=== PATIENT | female | born 1950 | race Caucasian/White ===

== ENCOUNTER → 2023-08-16 10:52 | Outpatient (CLI) | payer MEDICARE, OTHER, SELFPAY ==
--- NOTE | 2023-08-16 | DI.RAD.S_ITS ---
PROCEDURE: XR ABDOMEN 3V INDICATIONS: Diarrhea, unspecified TECHNIQUE: One view chest and two views of the abdomen were acquired. COMPARISON: None. FINDINGS: Surgical changes and devices: None. Chest: Lungs are clear. Heart size is normal. No pleural effusions. No pneumoperitoneum. Abdomen: Bowel gas pattern is normal. Moderately increased quantity of solid stool. No suspicious calcifications. Visualized solid organ contours appear normal. Bones: No suspicious bony lesions. Healed left rib fractures. IMPRESSION: Moderate diffuse colonic obstipation. Dictated by: Marla Colbert M.D. on 08/16/2023 at 16:41 Approved by: Marla Colbert M.D. on 08/16/2023 at 16:43
== END ==
PROVIDERS: PCP Physician Assistant; Referring Provider Internal Medicine Gastroenterology; Visit Provider Internal Medicine Gastroenterology
DX: K59.00 Constipation, unspecified (principal); R19.7 Diarrhea, unspecified; E66.9 Obesity, unspecified; Z68.32 Body mass index [BMI] 32.0-32.9, adult
CPT/HCPCS: 74021

== ENCOUNTER 2023-11-07 07:12 | Day surgery (SDC) | payer MEDICARE, OTHER, SELFPAY ==
--- NOTE | 2023-11-07 | PATH_ITS ---
[facility] Accession Number: [id number] No. of containers..02 Tissue . 01 Material submitted: . PART A: colon - TRANSVERSE COLON POLYP PART B: colon - RANDOM COLON BIOPSIES . 01 Diagnosis: A. Transverse Colon, Polyp: Tubular adenoma. . B. Random Colon, Biopsies: Colonic mucosa with no diagnostic abnormality. Negative for active, chronic, and microscopic colitis. Negative for dysplasia and malignancy. . MRV 11/09/2023 1358 Local . 01 Electronically signed: . Loly Calderon MD, Pathologist NPI- [id number] . 01 Gross description: . Part A: TRANSVERSE COLON POLYP: Received in formalin are 2 fragment(s) of orozco, soft tissue measuring 0.3 x 0.1 x 0.1 cm to 0.4 x 0.4 x 0.2 cm submitted entirely in 1 cassette(s) Part B: RANDOM COLON BIOPSIES: Received in formalin is 1 fragment(s) of orozco, soft tissue measuring 0.2 x 0.2 x 0.2 cm submitted entirely in 1 cassette(s) /NIK 11/08/2023 2231 Local . 01 Pathologist provided ICD-10: D12.3 . 01 CPT . 945256, 609172 Specimen Comment: A courtesy copy of this report has been sent to [phone] Performed at: 01 [facility] [address] [place] [address] [id number] MD Cameron Nelson MD Phone: [phone]
[2023-11-07 07:51] VITALS: BP 122/82; PULSE 86; RESP 17; TEMP 36.1; O2SAT 96
--- NOTE | 2023-11-07 08:00 | PM.HP.1 ---
History of Present Illness History of Present Illness Date Patient Seen: 11/07/23 Time Patient Seen: 08:00 Chief complaint: Dx Colonoscopy w/poss dx Narrative: 73-year-old female with diarrhea here for colonoscopy. There is a family history of colon cancer as well. The patient had x-rays which showed fecal loading. These were sent to my computer screen so I just saw these this morning. The patient was informed that they were ?all right?. I explained to her that they confirmed the presence of obstipation which supported the notion that her diarrhea is likely an overflow type picture. She had a tough time with the prep. Meds Home Medications and Allergies Allergies Allergy/AdvReac Type Severity Reaction Status Date / Time latex Allergy Intermediate Verified 11/07/23 07:41 Review of Systems Review of Systems ROS: Yes All systems reviewed with the patient and are negative except as otherwise documented Exam Const General: cooperative HENMT Head: normal to inspection Eyes General: appearance normal, both eyes and all related structures Neck Neck: normal visual inspection Chest Chest: normal inspection of the chest Resp Effort & Inspection: normal respiratory effort Cardio Rate: regular rate GI Inspection: normal to inspection Skin General: no rashes or lesions noted Neuro General: patient alert and patient awake Extrem General: normal to inspection and no pedal edema Psych Appearance: grossly normal Assessment & Plan Assessment & Plan narrative: 73-year-old female with diarrhea and constipation. Colonoscopy is pursued today. There is a family history of colon cancer in her sister.
--- NOTE | 2023-11-07 08:02 | PM.PREOP ---
Pre-operative Note Interval Note History & Physical reviewed/Exam performed by Physician: Yes Changes to H&P: No ASA Class (for procedural sedation): III
[2023-11-07] MEDS: LACTATED RINGERS 1,000 ML 120 ML IV (08:05)
--- NOTE | 2023-11-07 08:57 | PM.OP.COLON ---
Operative Date/Time/Diagnoses Date of procedure: 11/07/23 Time of procedure: 08:58 Pre-op diagnosis: Diarrhea. Family history of colon cancer. Post-op diagnosis: same Procedure & Clinicians Study performed: Colonoscopy with hot snare polypectomy and random biopsies Same procedure as scheduled: Yes Indications: Diarrhea. Family history of colon cancer. Surgeon: Bay Figueroa Procedure Notes SCOAP/Timeout: Done Procedure in detail: After the risks and benefits were explained, written and verbal informed consent was obtained. The patient was brought into the procedure room and placed into the left lateral decubitus position. Please see anesthesia note for sedation details. Digital rectal examination was accomplished. The scope was introduced into the patient and advanced under direct visualization to the cecum as identified by the appendiceal orifice and ileocecal valve. The scope was slowly withdrawn to carefully examine the mucosa for any defects or lesions. Comprehensive imaging was accomplished throughout the rectum including the dentate line. The colon was decompressed, the scope was then removed from the patient who tolerated the procedure well. Pediatric colonoscope Bowel prep adequate Scope withdrawal time: 7 minutes Sedation minutes: 21 Complications: none Impression: Patient had grade 1 internal hemorrhoids. There was some mild diverticulosis all through the sigmoid. The colon was slightly redundant and the stiffening john was required for advancement to cecum. At the hepatic flexure in the proximal transverse colon there was a diminutive polyp perhaps 4-5 mm that was removed with hot snare. No additional polyps were identified today. Random colon biopsies were taken for exclusion of microscopic colitis. The terminal ileum was interrogated and appeared visually normal. Endoscopic diagnosis 1. Grade 1 hemorrhoids 2. Diverticulosis 3. Small colon polyp 4. Mildly redundant colon Post-procedure Plan for aftercare: 1. Await histopathology. 2. Repeat colonoscopy 5 years. Disposition: PACU
[2023-11-07 08:58] VITALS: BP 114/81; PULSE 80; RESP 16; TEMP 36.4; O2SAT 95
[2023-11-07 09:03] VITALS: BP 117/58; PULSE 79; RESP 15; O2SAT 97
[2023-11-07 09:09] VITALS: BP 126/64; PULSE 84; RESP 16; O2SAT 97
[2023-11-07 09:14] VITALS: BP 118/77; PULSE 87; RESP 16; TEMP 36.6; O2SAT 93
== END 2023-11-07 09:21 | disposition home or self-care (01) ==
PROVIDERS: PCP Physician Assistant; Referring Provider Internal Medicine Gastroenterology; Visit Provider Internal Medicine Gastroenterology
PROC: 0DJD8ZZ Inspection of Lower Intestinal Tract, Via Natural or Artificial Opening Endoscopic (ICD-10-PCS; CPT 45378; principal; 2023-11-07 08:30)
DX: R19.7 Diarrhea, unspecified (principal); K59.00 Constipation, unspecified; Z80.0 Family history of malignant neoplasm of digestive organs; K64.8 Other hemorrhoids; K57.30 Diverticulosis of large intestine without perforation or abscess without bleeding; D12.3 Benign neoplasm of transverse colon
CPT/HCPCS: 45385; 45380; J2704